=== PATIENT | male | born 1950 | race Caucasian/White ===

== ENCOUNTER 2018-05-23 23:49 | Inpatient (IN) | payer MEDICARE ==
[~2018-05-23] VITALS: Ht 175.3 cm; Wt 71.2 kg
[~2018-05-23 23:49] MED LIST: TYLENOL WITH C1 EAC2 ORAL
--- NOTE | 2018-05-24 00:55 | Emergency Room Report ---
History of Present Illness General Chief Complaint: Generalized Weakness Source: Patient Present Illness HPI Patient is a 67-year-old male brought in by EMS after increased generalized weakness. Patient gradual onset of symptoms.Patient was noted to have increased generalized abdominal pain. The patient prior history of chronic leukemia. He states he had recently been seen. He reports having a normal white blood count greater than 30,000. He denies any fever. He reports having increased generalized pain. Allergies: Coded Allergies: No Known Allergies (Unverified , 05/23/18) Patient History Past Medical History: see triage record Reviewed Nursing Documentation: PMH: Agreed; PSxH: Agreed Nursing Documentation-PMH Hx Cancer: Yes - Leukemia Review of Systems All Other Systems: negative except mentioned in HPI Physical Exam Vital Signs Date Time Temp Pulse Resp B/P (MAP) Pulse Ox O2 Delivery O2 Flow Rate FiO2 05/23/18 23:44 98.7 89 18 133/77 98 Room Air 98.8 Sp02 EP Interpretation: reviewed, normal General Appearance: alert, GCS 15, cachetic, Chronically Ill Head: atraumatic ENT: normal ENT inspection, normal voice, other - diffu Neck: normal inspection, full range of motion, supple, no bony tend Respiratory: normal inspection, lungs clear, normal breath sounds, no respiratory distress, no retraction, no wheezing Cardiovascular #1: regular rate, rhythm, no edema Gastrointestinal: normal inspection, normal bowel sounds, non tender, soft, no guarding, no hernia Genitourinary: no CVA tenderness Musculoskeletal: normal inspection, back normal, normal range of motion Neurologic: normal inspection, alert, oriented x3, responsive, fermentologist III-XII nml as tested, speech normal Psychiatric: normal inspection, judgement/insight normal, mood/affect normal Skin: normal inspection, normal color, no rash Medical Decision Making Diagnostic Impression: Primary Impression: Generalized weakness Additional Impressions: Leukemia Hyperkalemia Hepatitis ER Course Patient presented for generalized weakness. Differential diagnosis included was not limited to anemia, urinary tract infection, electrolyte abnormality, hypothyroidism, myocardial infarction, myasthenia gravis, dehydration, among others. Because of complexity of patient's case laboratory testing and imaging studies were ordered. The patient started on IV fluids. The patient was noted to have a extremely elevated white blood count. Patient was noted to be hyperkalemic. EKG interpreted by me showed normal sinus rhythm with a rate of 82 with peaking T waves. The QRS was not widened.The patient is advised to follow up with primary care doctor in 1-2 days. Patient is advised to return if any worsening condition or if any changes in status that are concerning. This report is dictated with [employer] senior qc technician software which may occasionally lead to discrepancies related to use of this software. Labs Test 05/24/18 00:30 White Blood Count 151.6 K/UL (4.8-10.8) Red Blood Count 5.34 M/UL (4.70-6.10) Hemoglobin 14.3 G/DL (14.2-18.0) Hematocrit 46.1 % (42.0-52.0) Mean Corpuscular Volume 86 FL (80-99) Mean Corpuscular Hemoglobin 26.7 PG (27.0-31.0) Mean Corpuscular Hemoglobin Concent 30.9 G/DL (32.0-36.0) Red Cell Distribution Width 15.8 % (11.6-14.8) Platelet Count 197 K/UL (150-450) Mean Platelet Volume 9.4 FL (6.5-10.1) Neutrophils (%) (Auto) % (45.0-75.0) Lymphocytes (%) (Auto) % (20.0-45.0) Monocytes (%) (Auto) % (1.0-10.0) Eosinophils (%) (Auto) % (0.0-3.0) Basophils (%) (Auto) % (0.0-2.0) Prothrombin Time 15.1 SEC (9.30-11.50) Prothromb Time International Ratio 1.5 (0.9-1.1) Activated Partial Thromboplast Time 30 SEC (23-33) Sodium Level 128 MMOL/L (136-145) Potassium Level 6.6 MMOL/L (3.5-5.1) Chloride Level 94 MMOL/L (98-107) Carbon Dioxide Level 24 MMOL/L (21-32) Anion Gap 10 mmol/L (5-15) Blood Urea Nitrogen 68 mg/dL (7-18) Creatinine 2.0 MG/DL (0.55-1.30) Estimat Glomerular Filtration Rate 33.3 mL/min (>60) Glucose Level 108 MG/DL (74-106) Calcium Level 9.2 MG/DL (8.5-10.1) Total Bilirubin 13.8 MG/DL (0.2-1.0) Direct Bilirubin 9.1 MG/DL (0.0-0.3) Aspartate Amino Transf (AST/SGOT) 990 U/L (15-37) Alanine Aminotransferase (ALT/SGPT) 933 U/L (12-78) Alkaline Phosphatase 968 U/L (46-116) Total Protein 6.4 G/DL (6.4-8.2) Albumin 3.6 G/DL (3.4-5.0) Globulin 2.8 g/dL Albumin/Globulin Ratio 1.3 (1.0-2.7) Lipase 370 U/L (73-393) Last Vital Signs Date Time Temp Pulse Resp B/P (MAP) Pulse Ox O2 Delivery O2 Flow Rate FiO2 05/23/18 23:44 98.7 89 18 133/77 98 Room Air 98.8 Status: improved Disposition: HOME, SELF-CARE Condition: Stable Isak Lincoln MD May 24, 2018 00:55
[2018-05-24] MEDS ORDERED: Morphine Sulfate 4mg/ml Inj IVP ONE (01:00)
[2018-05-24 01:04] LABS: HEMATOCRIT 46.1 % (42.0-52.0); HEMOGLOBIN 14.3 G/DL (14.2-18.0); MEAN CORPUSCULAR VOLUME 86 FL (80-99); PLATELET COUNT 197 K/UL (150-450); RED BLOOD COUNT 5.34 M/UL (4.70-6.10); RED CELL DISTRIBUTION WIDTH 15.8 % (11.6-14.8)
[2018-05-24 01:09] LABS: ALANINE AMINOTRANSFERASE 933 U/L (12-78); ALBUMIN 3.6 G/DL (3.4-5.0); ALBUMIN/GLOBULIN RATIO 1.3 (1.0-2.7); ALKALINE PHOSPHATASE 968 U/L (46-116); ANION GAP 10 mmol/L (5-15); ASPARTATE AMINO TRANSFERASE 990 U/L (15-37); BILIRUBIN,TOTAL 13.8 MG/DL (0.2-1.0); BLOOD UREA NITROGEN 68 mg/dL (7-18); CALCIUM 9.2 MG/DL (8.5-10.1); CARBON DIOXIDE 24 MMOL/L (21-32); CHLORIDE 94 MMOL/L (98-107); SODIUM 128 MMOL/L (136-145); WHITE BLOOD COUNT 151.6 K/UL (4.8-10.8)
[2018-05-24 01:13] LABS: POTASSIUM 6.6 MMOL/L (3.5-5.1)
[2018-05-24 01:14] LABS: BILIRUBIN,DIRECT 9.1 MG/DL (0.0-0.3)
[2018-05-24 01:22] LABS: INR 1.5 (0.9-1.1)
[2018-05-24] MEDS ORDERED: Sodium Bicarbonate 50ml Carp IV ONE (01:45)
[2018-05-24] MEDS ORDERED: Calcium Gluconate 1gm/10ml vial IVP ONE (01:45)
[2018-05-24] MEDS ORDERED: Insulin Human Regular 100units/ml 3ml IV ONE (01:45)
[2018-05-24 03:00] VITALS: BP 138/89
[2018-05-24 03:15] LABS: BILIRUBIN, URINE 1+ (NEGATIVE); GLUCOSE, URINE (UA) NEGATIVE (NEGATIVE); KETONES,URINE NEGATIVE (NEGATIVE); LEUKOCYTE ESTERASE ,URINE NEGATIVE (NEGATIVE); NITRITE,URINE NEGATIVE (NEGATIVE); PH,URINE 5 (4.5-8.0); PROTEIN,URINE 2+ (NEGATIVE); UROBILINOGEN,URINE 4 MG/DL (0.0-1.0)
[2018-05-24 03:47] LABS: APPEARANCE,URINE SLIGHTLY CLOUDY; COLOR,URINE YELLOW
[2018-05-24 04:08] VITALS: BP 111/72
[2018-05-24] MEDS ORDERED: ESTER-C 1,0001 EACH PO (04:45)
[2018-05-24 08:00] VITALS: BP 139/81
[2018-05-24] MEDS ORDERED: Morphine Sulfate 2mg/ml Inj IVP PRN (10:15)
[2018-05-24 11:15] LABS: HEMATOCRIT 44.1 % (42.0-52.0); HEMOGLOBIN 13.9 G/DL (14.2-18.0); MEAN CORPUSCULAR VOLUME 86 FL (80-99); PLATELET COUNT 179 K/UL (150-450); RED BLOOD COUNT 5.16 M/UL (4.70-6.10); RED CELL DISTRIBUTION WIDTH 16.1 % (11.6-14.8)
[2018-05-24 11:31] LABS: WHITE BLOOD COUNT 138.3 K/UL (4.8-10.8)
[2018-05-24 11:35] LABS: ALANINE AMINOTRANSFERASE 898 U/L (12-78); ALBUMIN 3.2 G/DL (3.4-5.0); ALBUMIN/GLOBULIN RATIO 1.2 (1.0-2.7); ALKALINE PHOSPHATASE 899 U/L (46-116); ANION GAP 13 mmol/L (5-15); ASPARTATE AMINO TRANSFERASE 1166 U/L (15-37); BILIRUBIN,TOTAL 12.7 MG/DL (0.2-1.0); BLOOD UREA NITROGEN 66 mg/dL (7-18); CALCIUM 8.6 MG/DL (8.5-10.1); CARBON DIOXIDE 22 MMOL/L (21-32); CHLORIDE 95 MMOL/L (98-107); CREATININE 1.8 MG/DL (0.55-1.30); POTASSIUM 5.9 MMOL/L (3.5-5.1); SODIUM 130 MMOL/L (136-145)
[2018-05-24 11:36] LABS: BILIRUBIN,DIRECT 8.5 MG/DL (0.0-0.3)
[2018-05-24 12:00] VITALS: BP 138/84
--- NOTE | 2018-05-24 12:14 | Cardiology Report ---
APPROVED REPORT EKG Measurement Heart [id number] HI [id number] Sinus tachycardia with fusion complexes Possible Anterior infarct, age undetermined Abnormal ECG
--- NOTE | 2018-05-24 12:42 | Consultation ---
History of Present Illness General Date patient seen: May 24, 2018 Chief Complaint: Generalized Weakness Present Illness HPI 67-year-old male brought in by EMS after increased generalized weakness.the pt is very ill appearing hard of hearing. the pt is somewhat confused and was a poor historian. His AST is severely high. appears to abuse alcohol. the pt has waxing and waning of consciousness Allergies: Coded Allergies: No Known Allergies (Unverified , 05/23/18) Medication History Scheduled Ascorbate Calcium/Bioflav (Lashanda-C 1,000 Mg Tablet), 1 EACH PO DAILY, (Reported) Scheduled PRN Acetaminophen With Codeine (T#3) (Tylenol With Codeine #3 Tablet), Unknown Dose ORAL Q4H PRN for For Pain, (Reported) Patient History Limited by: medical condition History Provided By: Patient, Medical Record, PMD Healthcare decision maker Resuscitation status Full Code Advanced Directive on File No Past Medical/Surgical History Past Medical/Surgical History: (1) Hyperkalemia (2) Hepatitis (3) Generalized weakness (4) Leukemia Review of Systems Psychiatric: Reports: prior hx, anxiety, depressed feelings, emotional problems Physical Exam General Appearance: no apparent distress, alert, confused Last 24 Hour Vital Signs Date Time Temp Pulse Resp B/P (MAP) Pulse Ox O2 Delivery O2 Flow Rate FiO2 05/24/18 09:05 Room Air 05/24/18 08:00 97.7 102 20 139/81 (100) 94 97.7 05/24/18 08:00 100 05/24/18 06:00 Room Air 05/24/18 04:08 97.0 93 20 111/72 (85) 93 97.0 05/24/18 04:01 98.7 18 133/77 98 Room Air 98.8 05/24/18 04:00 97 05/24/18 03:00 98.8 88 18 138/89 98 Room Air 98.8 05/23/18 23:44 98.7 89 18 133/77 98 Room Air 98.8 Intake and Output 05/23/18 05/24/18 19:00 07:00 Intake Total 300 ml Balance 300 ml Intake Oral 300 ml Laboratory Tests Test 05/24/18 00:30 05/24/18 02:30 05/24/18 10:50 White Blood Count 151.6 K/UL (4.8-10.8) *H 138.3 K/UL (4.8-10.8) *H Red Blood Count 5.34 M/UL (4.70-6.10) 5.16 M/UL (4.70-6.10) Hemoglobin 14.3 G/DL (14.2-18.0) 13.9 G/DL (14.2-18.0) L Hematocrit 46.1 % (42.0-52.0) 44.1 % (42.0-52.0) Mean Corpuscular Volume 86 FL (80-99) 86 FL (80-99) Mean Corpuscular Hemoglobin 26.7 PG (27.0-31.0) L 26.9 PG (27.0-31.0) L Mean Corpuscular Hemoglobin Concent 30.9 G/DL (32.0-36.0) L 31.4 G/DL (32.0-36.0) L Red Cell Distribution Width 15.8 % (11.6-14.8) H 16.1 % (11.6-14.8) H Platelet Count 197 K/UL (150-450) 179 K/UL (150-450) Mean Platelet Volume 9.4 FL (6.5-10.1) 9.3 FL (6.5-10.1) Neutrophils (%) (Auto) % (45.0-75.0) % (45.0-75.0) Lymphocytes (%) (Auto) % (20.0-45.0) % (20.0-45.0) Monocytes (%) (Auto) % (1.0-10.0) % (1.0-10.0) Eosinophils (%) (Auto) % (0.0-3.0) % (0.0-3.0) Basophils (%) (Auto) % (0.0-2.0) % (0.0-2.0) Differential Total Cells Counted 100 100 Neutrophils % (Manual) 12 % (45-75) L 11 % (45-75) L Lymphocytes % (Manual) 62 % (20-45) H 62 % (20-45) H Monocytes % (Manual) 0 % (1-10) L 4 % (1-10) Eosinophils % (Manual) 0 % (0-3) 0 % (0-3) Basophils % (Manual) 0 % (0-2) 0 % (0-2) Blast Cells % 26 % (0-0) *H 23 % (0-0) *H Band Neutrophils 0 % (0-8) 0 % (0-8) Other Cell Type Platelet Estimate Adequate Adequate Platelet Morphology Normal Normal Red Blood Cell Morphology Poikilocytosis 2+ Anisocytosis 2+ 1+ Prothrombin Time 15.1 SEC (9.30-11.50) H Prothromb Time International Ratio 1.5 (0.9-1.1) H Activated Partial Thromboplast Time 30 SEC (23-33) Sodium Level 128 MMOL/L (136-145) L 130 MMOL/L (136-145) L Potassium Level 6.6 MMOL/L (3.5-5.1) *H 5.9 MMOL/L (3.5-5.1) H Chloride Level 94 MMOL/L (98-107) L 95 MMOL/L (98-107) L Carbon Dioxide Level 24 MMOL/L (21-32) 22 MMOL/L (21-32) Anion Gap 10 mmol/L (5-15) 13 mmol/L (5-15) Blood Urea Nitrogen 68 mg/dL (7-18) H 66 mg/dL (7-18) H Creatinine 2.0 MG/DL (0.55-1.30) H 1.8 MG/DL (0.55-1.30) H Estimat Glomerular Filtration Rate 33.3 mL/min (>60) 37.6 mL/min (>60) Glucose Level 108 MG/DL (74-106) H 110 MG/DL (74-106) H Calcium Level 9.2 MG/DL (8.5-10.1) 8.6 MG/DL (8.5-10.1) Total Bilirubin 13.8 MG/DL (0.2-1.0) H 12.7 MG/DL (0.2-1.0) H Direct Bilirubin 9.1 MG/DL (0.0-0.3) H 8.5 MG/DL (0.0-0.3) H Aspartate Amino Transf (AST/SGOT) 990 U/L (15-37) H 1166 U/L (15-37) H Alanine Aminotransferase (ALT/SGPT) 933 U/L (12-78) H 898 U/L (12-78) H Alkaline Phosphatase 968 U/L (46-116) H 899 U/L (46-116) H Total Protein 6.4 G/DL (6.4-8.2) 5.8 G/DL (6.4-8.2) L Albumin 3.6 G/DL (3.4-5.0) 3.2 G/DL (3.4-5.0) L Globulin 2.8 g/dL 2.6 g/dL Albumin/Globulin Ratio 1.3 (1.0-2.7) 1.2 (1.0-2.7) Lipase 370 U/L (73-393) Urine Color Yellow Urine Appearance Slightly cloudy Urine pH 5 (4.5-8.0) Urine Specific [place] 1.020 (1.005-1.035) Urine Protein 2+ (NEGATIVE) H Urine Glucose (UA) Negative (NEGATIVE) Urine Ketones Negative (NEGATIVE) Urine Occult Blood 4+ (NEGATIVE) H Urine Nitrite Negative (NEGATIVE) Urine Bilirubin 1+ (NEGATIVE) H Urine Ictotest Positive Urine Urobilinogen 4 MG/DL (0.0-1.0) H Urine Leukocyte Esterase Negative (NEGATIVE) Urine RBC 5-10 /HPF (0 - 0) H Urine WBC 2-4 /HPF (0 - 0) Urine Squamous Epithelial Cells None /LPF (NONE/OCC) Urine Bacteria Few /HPF (NONE) Urine Hyaline Casts 0-2 /LPF (NONE) H Urine Fine Granular Casts 0-2 /LPF (NONE) H Smudge Cells 2+ Acanthocytes 1+ Height (Feet): 5 Height (Inches): 9.00 Weight (Pounds): 157 Medications Current Medications Medications (Trade) Dose Ordered Sig/Acosta Route PRN Reason Start Time Stop Time Status Last Admin Dose Admin Morphine Sulfate (Morphine Sulfate) 2 mg Q4H PRN IVP For Pain 05/24/18 10:15 05/31/18 10:14 Ondansetron HCl (Zofran) 4 mg Q6H PRN IVP Nausea & Vomiting 05/24/18 10:15 06/23/18 10:14 05/24/18 10:56 Risperidone (RisperDAL) 1 mg QHS ORAL 05/24/18 21:00 06/23/18 20:59 UNV Sodium Chloride 1,000 ml @ 100 mls/hr Q10H IV 05/24/18 10:30 06/23/18 10:29 05/24/18 10:57 Assessment/Plan Assessment/Plan encephalopathy alcohol dep alcohol wd -thiamine -folate -mv -risperdal -vs/q/2hr Patricia Escobar MD May 24, 2018 12:42
[2018-05-24] MEDS ORDERED: LORazepam 1mg tab ORAL PRN (13:00)
[2018-05-24] MEDS: Thiamine 100mg tab ORAL SCH (13:37)
[2018-05-24 16:00] VITALS: BP 143/76
[2018-05-24] MEDS: Morphine Sulfate 2mg/ml Inj IVP PRN ×2 (16:44→20:48)
[2018-05-24 20:00] VITALS: BP 149/82
--- NOTE | 2018-05-24 20:14 | Diagnostic Imaging Report ---
EXAM: US Abdomen Complete CLINICAL HISTORY: PAIN TECHNIQUE: Real-time ultrasound of the abdomen (complete) with image documentation. COMPARISON: No relevant prior studies available. FINDINGS: Liver: Liver is enlarged. Coarsened hepatic echotexture with mild nodular contour. No focal hepatic lesions. Hepatofugal flow is noted. Gallbladder: Mild nonspecific gallbladder wall thickening. Sonographic Gonzales sign is negative. No gallstones. Common bile duct: Unremarkable as visualized. No stones. No dilation. Pancreas: Unremarkable as visualized. Kidneys: Indeterminate lesions in the superior pole of the left kidney are isoechoic to the renal parenchyma. The larger lesion measures 2.5 cm. Small simple appearing right renal cyst. No hydronephrosis or nephrolithiasis. Spleen: The spleen is enlarged measuring 19.3 cm in length. Aorta: Unremarkable. No aneurysm. Inferior vena cava: Unremarkable. Free fluid: Small amount of abdominal ascites. IMPRESSION: Morphologic features of cirrhosis with reversal of flow in the portal vein. Small amount of abdominal ascites. Indeterminate lesions in the superior pole of the left kidney are not definitely cystic. Nonemergent multiphase renal protocol CT or MRI may be considered for further characterization, if prior imaging is unavailable for comparison.
--- NOTE | 2018-05-24 22:05 | History and Physical ---
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 Admitted for generalized weakness, nausea and abdominal distenstion Found to have wbc 169K No fevers or chills Allergies: Coded Allergies: No Known Allergies (Unverified , 05/23/18) Medication History Scheduled Ascorbate Calcium/Bioflav (Lashanda-C 1,000 Mg Tablet), 1 EACH PO DAILY, (Reported) Scheduled PRN Acetaminophen With Codeine (T#3) (Tylenol With Codeine #3 Tablet), Unknown Dose ORAL Q4H PRN for For Pain, (Reported) Patient History Healthcare decision maker Resuscitation status Full Code Advanced Directive on File No Past Medical/Surgical History Past Medical/Surgical History: (1) Hyperkalemia (2) Hepatitis (3) Leukemia Review of Systems Constitutional: Reports: malaise, weakness Eye: Reports: no symptoms ENT: Reports: no symptoms Respiratory: Reports: no symptoms Cardiovascular: Reports: no symptoms Gastrointestinal: Reports: constipation, nausea Genitourinary: Reports: no symptoms Musculoskeletal: Reports: no symptoms Skin: Reports: no symptoms Psychiatric: Reports: no symptoms Neurological: Reports: no symptoms Endocrine: Reports: unexplained weight loss Hematologic/Lymphatic: Reports: swollen glands Physical Exam General Appearance: no apparent distress, cachetic, thin Lines, tubes and drains: peripheral HEENT: normocephalic Neck: non-tender, supple Respiratory/Chest: chest wall non-tender, lungs clear Breasts: no masses Cardiovascular/Chest: normal peripheral pulses, normal rate, regular rhythm Abdomen: normal bowel sounds, distended, hepatomegaly, splenomegaly Genitourinary/Rectal: normal genital exam Extremities: non-tender, no edema Skin Exam: palled Neurologic: vulnerability researcher II-XII grossly normal Lymphatic: anterior cervical Musculoskeletal: atrophy Last 24 Hour Vital Signs Date Time Temp Pulse Resp B/P (MAP) Pulse Ox O2 Delivery O2 Flow Rate FiO2 05/24/18 16:00 95 05/24/18 16:00 96.8 94 20 143/76 (98) 96 96.8 05/24/18 12:00 97.5 95 20 138/84 (102) 93 97.5 05/24/18 12:00 93 05/24/18 09:05 Room Air 05/24/18 08:00 97.7 102 20 139/81 (100) 94 97.7 05/24/18 08:00 100 05/24/18 06:00 Room Air 05/24/18 04:08 97.0 93 20 111/72 (85) 93 97.0 05/24/18 04:01 98.7 18 133/77 98 Room Air 98.8 05/24/18 04:00 97 05/24/18 03:00 98.8 88 18 138/89 98 Room Air 98.8 05/23/18 23:44 98.7 89 18 133/77 98 Room Air 98.8 Intake and Output 05/23/18 05/24/18 19:00 07:00 Intake Total 300 ml Balance 300 ml Intake Oral 300 ml Laboratory Tests Test 05/24/18 00:30 05/24/18 02:30 05/24/18 10:50 White Blood Count 151.6 K/UL (4.8-10.8) *H 138.3 K/UL (4.8-10.8) *H Red Blood Count 5.34 M/UL (4.70-6.10) 5.16 M/UL (4.70-6.10) Hemoglobin 14.3 G/DL (14.2-18.0) 13.9 G/DL (14.2-18.0) L Hematocrit 46.1 % (42.0-52.0) 44.1 % (42.0-52.0) Mean Corpuscular Volume 86 FL (80-99) 86 FL (80-99) Mean Corpuscular Hemoglobin 26.7 PG (27.0-31.0) L 26.9 PG (27.0-31.0) L Mean Corpuscular Hemoglobin Concent 30.9 G/DL (32.0-36.0) L 31.4 G/DL (32.0-36.0) L Red Cell Distribution Width 15.8 % (11.6-14.8) H 16.1 % (11.6-14.8) H Platelet Count 197 K/UL (150-450) 179 K/UL (150-450) Mean Platelet Volume 9.4 FL (6.5-10.1) 9.3 FL (6.5-10.1) Neutrophils (%) (Auto) % (45.0-75.0) % (45.0-75.0) Lymphocytes (%) (Auto) % (20.0-45.0) % (20.0-45.0) Monocytes (%) (Auto) % (1.0-10.0) % (1.0-10.0) Eosinophils (%) (Auto) % (0.0-3.0) % (0.0-3.0) Basophils (%) (Auto) % (0.0-2.0) % (0.0-2.0) Differential Total Cells Counted 100 100 Neutrophils % (Manual) 12 % (45-75) L 11 % (45-75) L Lymphocytes % (Manual) 88 % (20-45) H 62 % (20-45) H Monocytes % (Manual) 0 % (1-10) L 4 % (1-10) Eosinophils % (Manual) 0 % (0-3) 0 % (0-3) Basophils % (Manual) 0 % (0-2) 0 % (0-2) Blast Cells % 0 % (0-0) 23 % (0-0) *H Band Neutrophils 0 % (0-8) 0 % (0-8) Other Cell Type Platelet Estimate Adequate Adequate Platelet Morphology Normal Normal Red Blood Cell Morphology Poikilocytosis 2+ Anisocytosis 2+ 1+ Prothrombin Time 15.1 SEC (9.30-11.50) H Prothromb Time International Ratio 1.5 (0.9-1.1) H Activated Partial Thromboplast Time 30 SEC (23-33) Sodium Level 128 MMOL/L (136-145) L 130 MMOL/L (136-145) L Potassium Level 6.6 MMOL/L (3.5-5.1) *H 5.9 MMOL/L (3.5-5.1) H Chloride Level 94 MMOL/L (98-107) L 95 MMOL/L (98-107) L Carbon Dioxide Level 24 MMOL/L (21-32) 22 MMOL/L (21-32) Anion Gap 10 mmol/L (5-15) 13 mmol/L (5-15) Blood Urea Nitrogen 68 mg/dL (7-18) H 66 mg/dL (7-18) H Creatinine 2.0 MG/DL (0.55-1.30) H 1.8 MG/DL (0.55-1.30) H Estimat Glomerular Filtration Rate 33.3 mL/min (>60) 37.6 mL/min (>60) Glucose Level 108 MG/DL (74-106) H 110 MG/DL (74-106) H Calcium Level 9.2 MG/DL (8.5-10.1) 8.6 MG/DL (8.5-10.1) Total Bilirubin 13.8 MG/DL (0.2-1.0) H 12.7 MG/DL (0.2-1.0) H Direct Bilirubin 9.1 MG/DL (0.0-0.3) H 8.5 MG/DL (0.0-0.3) H Aspartate Amino Transf (AST/SGOT) 990 U/L (15-37) H 1166 U/L (15-37) H Alanine Aminotransferase (ALT/SGPT) 933 U/L (12-78) H 898 U/L (12-78) H Alkaline Phosphatase 968 U/L (46-116) H 899 U/L (46-116) H Total Protein 6.4 G/DL (6.4-8.2) 5.8 G/DL (6.4-8.2) L Albumin 3.6 G/DL (3.4-5.0) 3.2 G/DL (3.4-5.0) L Globulin 2.8 g/dL 2.6 g/dL Albumin/Globulin Ratio 1.3 (1.0-2.7) 1.2 (1.0-2.7) Lipase 370 U/L (73-393) Urine Color Yellow Urine Appearance Slightly cloudy Urine pH 5 (4.5-8.0) Urine Specific [place] 1.020 (1.005-1.035) Urine Protein 2+ (NEGATIVE) H Urine Glucose (UA) Negative (NEGATIVE) Urine Ketones Negative (NEGATIVE) Urine Occult Blood 4+ (NEGATIVE) H Urine Nitrite Negative (NEGATIVE) Urine Bilirubin 1+ (NEGATIVE) H Urine Ictotest Positive Urine Urobilinogen 4 MG/DL (0.0-1.0) H Urine Leukocyte Esterase Negative (NEGATIVE) Urine RBC 5-10 /HPF (0 - 0) H Urine WBC 2-4 /HPF (0 - 0) Urine Squamous Epithelial Cells None /LPF (NONE/OCC) Urine Bacteria Few /HPF (NONE) Urine Hyaline Casts 0-2 /LPF (NONE) H Urine Fine Granular Casts 0-2 /LPF (NONE) H Smudge Cells 2+ Acanthocytes 1+ Height (Feet): 5 Height (Inches): 9.00 Weight (Pounds): 157 Medications Current Medications Medications (Trade) Dose Ordered Sig/Acosta Route PRN Reason Start Time Stop Time Status Last Admin Dose Admin Folic Acid (Folate) 1 mg DAILY ORAL 05/24/18 13:00 06/23/18 12:59 05/24/18 13:37 Lorazepam (Ativan) 2 mg Q3H PRN ORAL For Anxiety 05/24/18 13:00 05/31/18 12:59 Morphine Sulfate (Morphine Sulfate) 2 mg Q4H PRN IVP For Pain 05/24/18 10:15 05/31/18 10:14 05/24/18 20:48 Ondansetron HCl (Zofran) 4 mg Q6H PRN IVP Nausea & Vomiting 05/24/18 10:15 06/23/18 10:14 05/24/18 16:44 Risperidone (RisperDAL) 1 mg QHS ORAL 05/24/18 21:00 06/23/18 20:59 05/24/18 20:48 Sodium Chloride 1,000 ml @ 100 mls/hr Q10H IV 05/24/18 10:30 06/23/18 10:29 05/24/18 10:57 Thiamine HCl (Vitamin B1) 100 mg DAILY ORAL 05/24/18 13:00 06/23/18 12:59 05/24/18 13:37 Assessment/Plan Status: not improved Status Narrative 67 yo man with h/o CLL, untreated admitted for increase WBC and fatigue/malaise/ generalized weakness Has elevated WBC on exam concerning for acute on chronic leukemia Assessment/Plan 1) Elevated WBC- h/o CLL -concerning for acute on chronic leukemia -will consult Hematology -Check AM labs -No signs for infection but will start broad spectrum antibiotics if signs/sxs of infection manifest 2) Abdominal distension/discomfort -likely due to organomegaly bowel regimen if fever or more severe pain occur will image and consider intraabdominal infection DVT Prophylaxis: SCD's Code Status: Full Hospital Classification declaration: Based on this initial evaluation and depending on the patient's clinical course I anticipate that this patient will require hospitalization for at least 2-3 days Disposition: Once the patient is stable to leave the hospital I anticipate the patient will likely be discharged to the following environment: Home I spent 70 minutes on this patients car and 36 minutes was dedicated to counseling and care coordination Time of note may not reflect time of encounter Jaguar Guajardo M.D. May 24, 2018 22:05
[2018-05-25] VITALS (7 sets, daily range): BP systolic 117–139; BP diastolic 62–76
[2018-05-25] MEDS: Thiamine 100mg tab ORAL SCH ×2 (09:00→09:34)
--- NOTE | 2018-05-25 15:47 | Consultation ---
Consult Note Consult Note Job ID [id number] Jose Hartman MD May 25, 2018 15:46
--- NOTE | 2018-05-25 22:37 | General Progress Note ---
Assessment/Plan Status: deteriorating Status Narrative 67 yo man with h/o CLL with leukocytosis concerning for acute on chronic leukemia Assessment/Plan 1) Elevated WBC- h/o CLL -concerning for acute on chronic leukemia -will consult Hematology -Check AM labs -No signs for infection but will start broad spectrum antibiotics if signs/sxs of infection manifest 2) Abdominal distension/discomfort -likely due to organomegaly bowel regimen if fever or more severe pain occur will image and consider intraabdominal infection 3) DECLAN, hyperuricemia, hyperkalemia -uric acid elevated -? tumor lysis -IVF's -Renal consult 4) Hepatitis -f/u labs -GI consult DVT Prophylaxis: SCD's Code status:Full Hospital Classification declaration:~Based on this initial evaluation, and depending on the patient's clinical course, I anticipate that this patient will require hospitalization for 2-3 days. Disposition:~Once the patient is stable to leave the hospital, I anticipate the patient will likely be discharged to the following environment:Home I spent 45 minutes on this patient's case, and 35~minutes was dedicated to counseling and/or care coordination. ~ Time of note may not reflect time of encounter. Subjective Date patient seen: May 25, 2018 Time patient seen: 09:10 Allergies: Coded Allergies: No Known Allergies (Unverified , 05/23/18) Subjective No acute events overnight Patient with continued nausea, improving No vomiting +weakness Objective Last 24 Hour Vital Signs Date Time Temp Pulse Resp B/P (MAP) Pulse Ox O2 Delivery O2 Flow Rate FiO2 05/25/18 21:00 Room Air 05/25/18 20:00 89 05/25/18 20:00 97.5 89 24 139/67 (91) 95 97.5 05/25/18 16:00 97.5 89 18 138/66 (90) 98 97.5 05/25/18 16:00 88 05/25/18 12:00 100 05/25/18 11:45 97.5 92 18 133/62 (85) 95 97.5 05/25/18 09:00 Room Air 05/25/18 08:00 94 05/25/18 08:00 97.8 94 20 117/72 (87) 95 97.8 05/25/18 04:00 96.1 94 19 128/62 (84) 94 96.1 05/25/18 04:00 95 05/25/18 00:00 95 05/25/18 00:00 97.9 92 18 134/76 (95) 93 97.9 Intake and Output 05/24/18 05/25/18 19:00 07:00 Intake Total 1240 ml 640 ml Output Total 400 ml 0 ml Balance 840 ml 640 ml Intake Oral 440 ml 240 ml IV Total 800 ml 400 ml Output Urine Total 400 ml 0 ml # Bowel Movements 2 Laboratory Tests 05/25/18 10:00: Reticulocyte Count 1.3, Uric Acid 12.9H, Vitamin B12 Level > 2000H, Immunoglobulin G [Pending], Immunoglobulin A [Pending], Immunoglobulin M [ Pending] Height (Feet): 5 Height (Inches): 9.00 Weight (Pounds): 157 General Appearance: no apparent distress, cachetic, thin EENT: PERRL/EOMI, normal ENT inspection, scleral icterus, pale conjunctivae Neck: non-tender, supple Cardiovascular: normal peripheral pulses, normal rate, regular rhythm, no gallop/murmur, no JVD Respiratory/Chest: chest wall non-tender, lungs clear Abdomen: normal bowel sounds, non tender, hepatomegaly, splenomegaly Pelvis: normal external exam Extremities: normal range of motion Edema: trace edema Neurologic: testing and regulating chief II-XII grossly normal, no motor/sensory deficits Skin: normal pigmentation, warm/dry Lymphatic: normal anterior cervical (L), normal anterior cervical (R), normal posterior cervical (L), normal posterior cervical (R); firm submandibular (L), firm submandibular (R) Jaguar Guajardo M.D. May 25, 2018 22:37
[2018-05-26] VITALS (7 sets, daily range): BP systolic 112–129; BP diastolic 59–70
--- NOTE | 2018-05-26 00:45 | Consultation ---
DATE OF CONSULTATION: 05/25/2018 NOTE: POOR AUDIO HEMATOLOGY/ONCOLOGY CONSULTATION CONSULTING PHYSICIAN: Jose Hartman M.D. REFERRING PHYSICIANS: Luca Smith M.D., Karley Almanza NP, and Jaguar Guajardo M.D. REASON FOR CONSULTATION: Evaluation of CLL. IDENTIFYING DATA: Dear Dr. Smith, Karley Almanza, and Dr. Jaguar Guajardo: The patient is a pleasant 67-year-old male, recently diagnosed with CLL with history. At this time, noted to have a white count of 169,000, noted to have elevated lymphocytes, potentially lymphocytes noted as well, at this time presents with abdominal pain, nausea with distention. Ultrasound of the abdomen has been completed. Liver enlarged, nonsignificant splenomegaly was noted and Hematology Service consulted for evaluation of elevated lymphocyte count. PAST MEDICAL HISTORY: As noted above, hyperlipidemia, hypertension, leukemia. PAST SURGICAL HISTORY: None noted. ALLERGIES: . FAMILY HISTORY: Noncontributory. SOCIAL HISTORY: No alcohol, tobacco, or drug use. REVIEW OF SYSTEMS: CONSTITUTIONAL: No fevers, chills, or night sweats. SKIN: No rashes, bumps, or itching. HEENT: No headache, hearing or visual changes. BREASTS: No lumps, pain, or discharge. PULMONARY: No cough, sputum, or shortness of breath. GASTROINTESTINAL: No nausea, vomiting, or diarrhea. GENITOURINARY: No dysuria, frequency, or urgency. MUSCULOSKELETAL: No joint swelling, muscle pain, or trauma. lymphadenopathy noted along the neck as well as the inguinal area. LABORATORY AND DIAGNOSTIC DATA: WBC of 138,000. Hemoglobin , hematocrit , platelets 179,000. No blasts noted. Coagulopathy, INR 1.5. of 12.7 and . ASSESSMENT AND RECOMMENDATION: 1. CLL. The patient with a recent diagnosis of CLL with lymphocytes predominant and neutrophils. At this time, imaging has been reviewed. Does not need any immediate treatment. Obtain Psychiatry evaluation, likely will need either by mouth or IV drug in the outpatient setting. Continue to closely monitor. 2. Anemia due to underlying chronic kidney disease. 3. Coagulopathy, likely due to liver involvement and hepatitis. Administer vitamin K as needed. 4. Immunodeficiency state. Obtain IgG, IgA and IgM levels. 5. Hepatitis, noted to have transaminitis. Obtain GI evaluation. 6. Hyperchloremia and consider to obtain CT scan. 7. Appreciate the consultation. Thank you very much for the consultation. Jose Hartman M.D. DR: SACHA JOB#: [id number] CC:
--- NOTE | 2018-05-26 08:41 | General Progress Note ---
Assessment/Plan Assessment/Plan 1) Elevated WBC- h/o CLL -concerning for acute on chronic leukemia -will consult Hematology -Check AM labs -No signs for infection but will start broad spectrum antibiotics if signs/sxs of infection manifest 2) Abdominal distension/discomfort -likely due to organomegaly bowel regimen if fever or more severe pain occur will image and consider intraabdominal infection 3) DECLAN, hyperuricemia, hyperkalemia -uric acid elevated -? tumor lysis -IVF's -Renal consult 4) Hepatitis -f/u labs -GI consult DVT Prophylaxis: SCD's Code status:Full Hospital Classification declaration:~Based on this initial evaluation, and depending on the patient's clinical course, I anticipate that this patient will require hospitalization for 2-3 days. Disposition:~Once the patient is stable to leave the hospital, I anticipate the patient will likely be discharged to the following environment:Home I spent 45 minutes on this patient's case, and 35~minutes was dedicated to counseling and/or care coordination. ~ Time of note may not reflect time of encounter. Subjective Allergies: Coded Allergies: No Known Allergies (Unverified , 05/23/18) Subjective No acute events overnight Patient with continued nausea, improving No vomiting +weakness Objective Last 24 Hour Vital Signs Date Time Temp Pulse Resp B/P (MAP) Pulse Ox O2 Delivery O2 Flow Rate FiO2 05/26/18 05:58 97.4 86 22 112/60 (77) 95 97.4 05/26/18 04:00 97.5 89 24 122/59 (80) 94 97.5 05/26/18 04:00 85 05/26/18 02:00 97.2 92 24 124/68 (86) 95 97.2 05/26/18 00:00 94 05/26/18 00:00 97.0 94 24 121/62 (81) 94 97.0 05/25/18 22:00 97.2 88 20 121/68 (85) 94 97.2 05/25/18 21:00 Room Air 05/25/18 20:00 89 05/25/18 20:00 97.5 89 24 139/67 (91) 95 97.5 05/25/18 16:00 97.5 89 18 138/66 (90) 98 97.5 05/25/18 16:00 88 05/25/18 12:00 100 05/25/18 11:45 97.5 92 18 133/62 (85) 95 97.5 05/25/18 09:00 Room Air Intake and Output 05/25/18 05/26/18 19:00 07:00 Intake Total 120 ml 1358 ml Output Total 200 ml 300 ml Balance -80 ml 1058 ml Intake Oral 120 ml 360 ml IV Total 998 ml Output Urine Total 200 ml 300 ml # Voids 1 1 # Bowel Movements 1 Laboratory Tests 05/25/18 10:00: Reticulocyte Count 1.3, Uric Acid 12.9H, Vitamin B12 Level > 2000H, Immunoglobulin G [Pending], Immunoglobulin A [Pending], Immunoglobulin M [ Pending] Height (Feet): 5 Height (Inches): 9.00 Weight (Pounds): 157 Jaguar Guajardo M.D. May 26, 2018 08:41
[2018-05-26 08:55] LABS: HEMATOCRIT 42.8 % (42.0-52.0); HEMOGLOBIN 13.3 G/DL (14.2-18.0); MEAN CORPUSCULAR VOLUME 86 FL (80-99); PLATELET COUNT 136 K/UL (150-450); RED BLOOD COUNT 4.97 M/UL (4.70-6.10); RED CELL DISTRIBUTION WIDTH 17.3 % (11.6-14.8)
[2018-05-26] MEDS: Thiamine 100mg tab ORAL SCH (08:57)
[2018-05-26] MEDS ORDERED: Lactulose 20gm/30ml UDC ORAL SCH ×3 (09:00→18:00)
[2018-05-26 09:01] LABS: WHITE BLOOD COUNT 165.7 K/UL (4.8-10.8)
[2018-05-26 09:24] LABS: ALANINE AMINOTRANSFERASE 1675 U/L (12-78); ALBUMIN/GLOBULIN RATIO 1.3 (1.0-2.7); ALKALINE PHOSPHATASE 967 U/L (46-116); ANION GAP 20 mmol/L (5-15); BILIRUBIN,TOTAL 15.5 MG/DL (0.2-1.0); BLOOD UREA NITROGEN 104 mg/dL (7-18); CALCIUM 8.4 MG/DL (8.5-10.1); CARBON DIOXIDE 14 MMOL/L (21-32); CHLORIDE 94 MMOL/L (98-107); CREATININE 3.8 MG/DL (0.55-1.30); POTASSIUM 7.5 MMOL/L (3.5-5.1); SODIUM 128 MMOL/L (136-145)
[2018-05-26 09:36] LABS: ASPARTATE AMINO TRANSFERASE 2880 U/L (15-37)
[2018-05-26 09:55] LABS: AMMONIA 110 umol/L (11-32)
--- NOTE | 2018-05-26 09:56 | Diagnostic Imaging Report ---
EXAM: CT Head Without Intravenous Contrast CLINICAL HISTORY: AMS TECHNIQUE: Axial computed tomography images of the head/brain without intravenous contrast. CTDI is 70.38 mGy and DLP is 1481 mGy-cm. One or more of the following dose reduction techniques were used: automated exposure control, adjustment of the mA and/or kV according to patient size, use of iterative reconstruction technique. COMPARISON: No relevant prior studies available. FINDINGS: No intracranial hemorrhage, abnormal intra- or extra-axial collections or parenchymal lesions are seen. There are involutional changes with prominence of the sulci, basal cisterns and ventricles. Scattered white matter hypoattenuations are present, likely from small vessel disease. Hypoattenuation in the right claudia is likely due to streak artifact. The lr-white differentiation is preserved. No evidence of mass effect, midline shift, or edema. The osseous structures are unremarkable. The visualized portions of the paranasal sinuses are clear. IMPRESSION: 1. No acute intracranial process. 2. Involutional changes with small vessel disease. 3. Hypoattenuation in the right claudia is likely due to streak artifact versus old infarct.
--- NOTE | 2018-05-26 10:36 | General Progress Note ---
Assessment/Plan Assessment/Plan GI CONSULT -Dictated Assessment - Acute hepatitis, possibly going into fulminant liver failure - Likely underlying chronic liver disease / cirrhosis, etiology to be determined (possibly EtOH) - concomitant acute renal failure a very poor prognostic sign - acute liver failure on top of a cirrhotic liver also carries very poor prognosis - cause of acute liver failure not clear. Presentation typical for tylenol toxicity but Tylenol level added to admit labs is undetectable - DDX = HSV, HAV, EBV, CMV or orther pathology Recommendations - Needs to be transferred to a liver transplant center today - I will order all appropriate serologies - check liver duplex and CT - Increase lactulose - follow very closely - renal consult - will likely need HD soon - very guarded - may need transfer to ICU if condition worsens Subjective Allergies: Coded Allergies: No Known Allergies (Unverified , 05/23/18) Objective Last 24 Hour Vital Signs Date Time Temp Pulse Resp B/P (MAP) Pulse Ox O2 Delivery O2 Flow Rate FiO2 05/26/18 09:00 Room Air 05/26/18 08:00 97.0 90 20 119/67 (84) 96 97.0 05/26/18 08:00 87 05/26/18 05:58 97.4 86 22 112/60 (77) 95 97.4 05/26/18 04:00 97.5 89 24 122/59 (80) 94 97.5 05/26/18 04:00 85 05/26/18 02:00 97.2 92 24 124/68 (86) 95 97.2 05/26/18 00:00 94 05/26/18 00:00 97.0 94 24 121/62 (81) 94 97.0 05/25/18 22:00 97.2 88 20 121/68 (85) 94 97.2 05/25/18 21:00 Room Air 05/25/18 20:00 89 05/25/18 20:00 97.5 89 24 139/67 (91) 95 97.5 05/25/18 16:00 97.5 89 18 138/66 (90) 98 97.5 05/25/18 16:00 88 05/25/18 12:00 100 05/25/18 11:45 97.5 92 18 133/62 (85) 95 97.5 Intake and Output 05/25/18 05/26/18 19:00 07:00 Intake Total 120 ml 1358 ml Output Total 200 ml 300 ml Balance -80 ml 1058 ml Intake Oral 120 ml 360 ml IV Total 998 ml Output Urine Total 200 ml 300 ml # Voids 1 1 # Bowel Movements 1 Laboratory Tests 05/26/18 08:43: White Blood Count 165.7*H, Red Blood Count 4.97, Hemoglobin 13.3L, Hematocrit 42.8, Mean Corpuscular Volume 86, Mean Corpuscular Hemoglobin 26.7L, Mean Corpuscular Hemoglobin Concent 31.0L, Red Cell Distribution Width 17.3H, Platelet Count 136L, Mean Platelet Volume 8.4, Neutrophils (%) (Auto) , Lymphocytes (%) (Auto) , Monocytes (%) (Auto) , Eosinophils (%) (Auto) , Basophils (%) (Auto) , Differential Total Cells Counted 100, Neutrophils % ( Manual) 6L, Lymphocytes % (Manual) 78H, Monocytes % (Manual) 0L, Eosinophils % ( Manual) 0, Basophils % (Manual) 0, Blast Cells % 16*H, Band Neutrophils 0, Smudge Cells 2+, Platelet Estimate DecreasedL, Platelet Morphology Normal, Polychromasia 1+, Anisocytosis 1+, Sodium Level 128L, Potassium Level 7.5*H, Chloride Level 94L, Carbon Dioxide Level 14L, Anion Gap 20H, Blood Urea Nitrogen 104H, Creatinine 3.8H, Estimat Glomerular Filtration Rate 15.9, Glucose Level 104, Calcium Level 8.4L, Total Bilirubin 15.5H, Direct Bilirubin 11.0H, Aspartate Amino Transf (AST/SGOT) 2880H, Alanine Aminotransferase (ALT/ SGPT) 1675H, Alkaline Phosphatase 967H, Ammonia 110H, Total Protein 5.3L, Albumin 3.0L, Globulin 2.3, Albumin/Globulin Ratio 1.3, Acetaminophen Level [ Pending] Height (Feet): 5 Height (Inches): 9.00 Weight (Pounds): 157 Des Jha MD May 26, 2018 10:36
[2018-05-26] MEDS ORDERED: Sodium Polystyrene Sulfonate 15gm Powder ORAL SCH (12:00)
[2018-05-26 12:39] LABS: % IRON SATURATION 13 % (15-50); IRON 26 ug/dL (50-175); TOTAL IRON BINDING CAPACITY 200 ug/dL (250-450)
[2018-05-26 12:52] LABS: CREATINE KINASE 253 U/L (26-308); FERRITIN 1714 NG/ML (8-388)
[2018-05-26 13:07] LABS: INR 1.6 (0.9-1.1)
--- NOTE | 2018-05-26 13:50 | Consultation ---
Consult Note Consult Note asked to eval for renal failure Patient is a 67-year-old male brought in by EMS after increased generalized weakness. Patient gradual onset of symptoms.Patient was noted to have increased generalized abdominal pain. The patient prior history of chronic leukemia. He states he had recently been seen. He reports having a normal white blood count greater than 30,000. He denies any fever. He reports having increased generalized pain. Allergies: Coded Allergies: No Known Allergies (Unverified , 05/23/18) Assessment/Plan Acute renal failure- ? Hepato Renal HyperKalemia Acute hepatitis, possibly going into fulminant liver failure- Jaundice. Likely underlying chronic liver disease / cirrhosis, etiology to be determined ( possibly ETOH) CLL / Low immunity syndrom HyperUrecemia Kayexelate- Lactulose IV Hydrate NPO Monitor lytes and Renal parameters Poor prognosis U Na Isma Yoon Per orders Montez Meadows MD May 26, 2018 13:50
[2018-05-26] MEDS ORDERED: D5NS 1,000 ML IV SCH ×2 (13:51→14:00)
--- NOTE | 2018-05-26 16:18 | General Progress Note ---
Assessment/Plan Status: unchanged Assessment/Plan 1. CLL. The patient with a recent diagnosis of CLL with lymphocytes predominant and neutrophils. At this time, imaging has been reviewed. --> Does not need any immediate treatment. --> Obtain Psychiatry evaluation, --> likely will need either by mouth or IV drug in the outpatient setting. --> Continue to closely monitor. 2. Anemia due to underlying chronic kidney disease. --> Continue to closely monitor for improvement. --> Anemia w/u has been reviewed. Will trend CBC daily. --> Hgb goal >7 3. Coagulopathy, likely due to liver involvement and hepatitis. --> Administer vitamin K as needed. 4. Immunodeficiency state. --> IgG 470, IgA 75 and IgM 37 5. Hepatitis, noted to have transaminitis. Obtain GI evaluation. 6. Hyperchloremia. Consider to obtain CT scan. Subjective Date patient seen: May 26, 2018 ROS Limited/Unobtainable: Yes Allergies: Coded Allergies: No Known Allergies (Unverified , 05/23/18) All Systems: reviewed and negative except above Subjective CT head shows no acute intracranial process. Pt awaiting transfer to [facility]. Objective Last 24 Hour Vital Signs Date Time Temp Pulse Resp B/P (MAP) Pulse Ox O2 Delivery O2 Flow Rate FiO2 05/26/18 13:00 Room Air 05/26/18 09:00 Room Air 05/26/18 08:00 97.0 90 20 119/67 (84) 96 97.0 05/26/18 08:00 87 05/26/18 05:58 97.4 86 22 112/60 (77) 95 97.4 05/26/18 04:00 97.5 89 24 122/59 (80) 94 97.5 05/26/18 04:00 85 05/26/18 02:00 97.2 92 24 124/68 (86) 95 97.2 05/26/18 00:00 94 05/26/18 00:00 97.0 94 24 121/62 (81) 94 97.0 05/25/18 22:00 97.2 88 20 121/68 (85) 94 97.2 05/25/18 21:00 Room Air 05/25/18 20:00 89 05/25/18 20:00 97.5 89 24 139/67 (91) 95 97.5 Intake and Output 05/25/18 05/26/18 19:00 07:00 Intake Total 120 ml 1358 ml Output Total 200 ml 300 ml Balance -80 ml 1058 ml Intake Oral 120 ml 360 ml IV Total 998 ml Output Urine Total 200 ml 300 ml # Voids 1 1 # Bowel Movements 1 Laboratory Tests 05/26/18 08:43: White Blood Count 165.7*H, Red Blood Count 4.97, Hemoglobin 13.3L, Hematocrit 42.8, Mean Corpuscular Volume 86, Mean Corpuscular Hemoglobin 26.7L, Mean Corpuscular Hemoglobin Concent 31.0L, Red Cell Distribution Width 17.3H, Platelet Count 136L, Mean Platelet Volume 8.4, Neutrophils (%) (Auto) , Lymphocytes (%) (Auto) , Monocytes (%) (Auto) , Eosinophils (%) (Auto) , Basophils (%) (Auto) , Differential Total Cells Counted 100, Neutrophils % ( Manual) 6L, Lymphocytes % (Manual) 78H, Monocytes % (Manual) 0L, Eosinophils % ( Manual) 0, Basophils % (Manual) 0, Blast Cells % 16*H, Band Neutrophils 0, Smudge Cells 2+, Platelet Estimate DecreasedL, Platelet Morphology Normal, Polychromasia 1+, Anisocytosis 1+, Erythrocyte Sedimentation Rate 2, Sodium Level 128L, Potassium Level 7.5*H, Chloride Level 94L, Carbon Dioxide Level 14L , Anion Gap 20H, Blood Urea Nitrogen 104H, Creatinine 3.8H, Estimat Glomerular Filtration Rate 15.9, Glucose Level 104, Calcium Level 8.4L, Iron Level 26L, Total Iron Binding Capacity 200L, Percent Iron Saturation 13L, Unsaturated Iron Binding 174, Ferritin 1714H, Total Bilirubin 15.5H, Direct Bilirubin 11.0H, Aspartate Amino Transf (AST/SGOT) 2880H, Alanine Aminotransferase (ALT/SGPT) 1675H, Alkaline Phosphatase 967H, Ammonia 110H, Total Creatine Kinase 253, C- Reactive Protein, Quantitative 13.9H, Total Protein 5.3L, Albumin 3.0L, Globulin 2.3, Albumin/Globulin Ratio 1.3, Acetaminophen Level < 2L 05/26/18 12:40: Prothrombin Time 16.7H, Prothromb Time International Ratio 1.6H, Alpha-1- Antitrypsin [Pending], Alpha Fetoprotein [Pending], Anti-Nuclear Antibody Screen [Pending], F-Actin IgG Antibody [Pending], Cytomegalovirus DNA Qual (PCR ) [Pending], Maninder-Hazel Virus Capsid Ag IgM Ab [Pending], Maninder-Hazel DNA Quant copies/mL [Pending], Maninder-Hazel Quant PCR Plasma log10 [Pending], Hepatitis A IgM Antibody [Pending], Hepatitis B Surface Antigen [Pending], Hepatitis B Surface Antibody [Pending], Hepatitis B Core IgM Antibody [Pending] , Hepatitis C Antibody [Pending], Herpes Simplex Virus I IgM Ab (IFA) [Pending] , Herpes Simplex Virus II IgM Ab (IFA [Pending], Monoscreen [Pending] 05/26/18 14:00: Stool Occult Blood [Pending] 05/26/18 14:45: C-Reactive Protein, Quantitative 12.2H Height (Feet): 5 Height (Inches): 9.00 Weight (Pounds): 157 General Appearance: no apparent distress EENT: PERRL/EOMI Neck: normal alignment Cardiovascular: normal peripheral pulses Respiratory/Chest: no respiratory distress Abdomen: normal bowel sounds, no organomegaly Jose Hartman MD May 26, 2018 16:18
--- NOTE | 2018-05-26 18:13 | Discharge Summary ---
Discharge Summary Hospital Course Date of Admission May 24, 2018 at 02:03 Date of Discharge 05/26/2018 Admitting Diagnosis weakness, acute leukemia Reason for Hospitalization: DECLAN, liver failure, r/o acute leukemia HPI James Cadena is a 67 year old male who was admitted on May 24, 2018 at 02:03 for Weakness/Leukemia He was found to have profound leukocytosis and elevated liver enzymes He was also noted to have DECLAN Consultations Gastroenterology Hematology Nephrology Procedures None Hospital Course He progressively worsened necessitating transfer to [facility] for more intensive monitoring and Hepatology consultation given concern for progressive hepatic failure with concomitant renal failure. Discharge Condition Upon Discharge: critical Discharge Disposition Patient was transferred to [facility] for more intense monitoring and Hepatology Consult for worsening liver failure with possible hepatorenal syndrome in the setting of CLL Discussed with Hepatology team- they will consult with patient on arrival to floor Discharge Diagnoses: (1) Acute renal failure (2) Acute liver failure (3) Leukemia (4) Generalized weakness (5) Hyperkalemia Jaguar Guajardo M.D. May 26, 2018 18:13
--- NOTE | 2018-05-27 08:31 | Diagnostic Imaging Report ---
Indication: Abdominal distention Technique: Spiral acquisitions obtained through the abdomen. No oral contrast utilized, per emergency room physician request No IV contrast utilized, per referring physician request.. Multiplanar reconstructions were generated. Total dose length product 475.7 mGycm. CTDIvol(s) 12.54 mGy. Dose reduction achieved using automated exposure control Comparison: Reference made to ultrasound dated 05/24/2018 Findings: Lack of IV contrast limits assessment of the solid organs. Liver is diffusely enlarged. It demonstrates geographic patchy low-attenuation consistent with geographic fatty infiltration. The gallbladder contains high attenuation material, possibly excreted contrast from a prior contrast study. No biliary ductal dilatation. The pancreas is unremarkable. Masslike opacities in the left periaortic region most likely represent varices. The spleen is enlarged, measuring 17 cm long axis dimension. The adrenals are unremarkable. The right kidney demonstrates a 15 mm cyst in the upper pole. Defined area of soft tissue is seen in the left upper pole renal sinus, measures approximately 3 cm in diameter. This demonstrates the same attenuation as the adjacent renal parenchyma. No definite retroperitoneal adenopathy, although the presence of varices makes this difficult to exclude. There is a small amount of ascites fluid. There is diffuse congestion of the mesenteric fat. Visualized bowel loops are grossly unremarkable. No free intraperitoneal gas demonstrated. There is a moderate size right pleural effusion. There is compressive atelectasis of a significant portion of the right lower lobe. There are minimal atelectatic changes at the left lung base Impression: Limited exam, due to lack of oral enteric contrast administration Hepatomegaly Evidence of diffuse geographic fatty infiltration of the liver. Evidence of portal hypertension, with splenomegaly, varices, and a small amount of ascites Findings suspicious for 3 cm soft tissue mass in the left upper pole renal sinus, corresponding to finding reported on recent ultrasound. This is not well demonstrated, however, and appearance is nonspecific. Possibility of neoplasm should certainly be considered. Dense gallbladder luminal contents probably represent excretion of a previous contrast load Moderate size right-sided pleural effusion. Resultant compressive atelectasis of portions of the right lower lobe This agrees with the preliminary interpretation provided overnight by [facility] teleradiology service. The CT scanner at [facility] is accredited by the [employer] and the scans are performed using protocols designed to limit radiation exposure to as low as reasonably achievable to attain images of sufficient resolution adequate for diagnostic evaluation.
--- NOTE | 2018-05-27 09:00 | Consultation ---
DATE OF CONSULTATION: 05/26/2018 GASTROENTEROLOGY CONSULTATION CHIEF COMPLAINT: I was asked to see this patient this morning for evaluation of hepatitis. HISTORY OF PRESENT ILLNESS: The patient is a 67-year-old white man who came to the emergency room on 05/24/2018 with a chief complaint of generalized weakness and some abdominal pain. The patient is somewhat confused now and is difficult to get any more history, therefore, most of my information is available only from the chart records. The patient apparently has had a prior history of chronic leukemia of unclear duration. He came to the emergency room with white count well over 100,000. He has been seen by Hematology and no particular treatment deemed to be necessary at this time. He also was noted to have elevated transaminases and bilirubin, which have progressed over the last 48 hours. The patient also apparently become more confused and has been placed on lactulose. His initial ammonia level today was 110. He also was noted to have hepatitis on admission with an AST of 1166, ALT of 898 and alkaline phosphatase of 899 and bilirubin total of 12.7. These numbers have all worsened over the past 48 hours. The patient also had abdominal ultrasound showing some radiographic features of cirrhotic liver. The liver appeared to be enlarged with coarse echotexture and mildly nodular contour with reversal of blood flow suggestive of chronic liver disease and cirrhosis. The etiology of the cirrhosis is not clear. The patient does seem to have some alcohol consumption, but he is confused at this time and I cannot tell if he drinks excessively or just intermittently. He denies any past history of liver disease. He does take Tylenol No. 3 With Codeine for pain, but it is not clear whether he has taken a significant amount of it and it is not clear whether he takes any [id number] medications including ones that may contain acetaminophen. An acetaminophen level was ordered through initial admission laboratory panel and the level was undetectable. The patient denies having any prescription medications at home, although again the history is very limited since he is confused at this time. PAST MEDICAL HISTORY: History of chronic lymphocytic leukemia. FAMILY HISTORY: Unavailable. SOCIAL HISTORY: The patient states he is single and has no family that I can call. He states he has a "hostile" brother and he does not want me to call him. When asked about alcohol, he states he takes some alcohol "as a medication" intermittently, but I cannot understand what he means by that. REVIEW OF SYSTEMS: Otherwise unobtainable. PHYSICAL EXAMINATION: GENERAL: Confused white man who keeps his eyes closed for most of the interview, seen in his room with the nurse at bedside. HEENT: Normocephalic and atraumatic. The patient has jaundice. NECK: Supple. CHEST: Clear to auscultation. CARDIOVASCULAR: Reveals regular rate. ABDOMEN: Mildly distended and reveals an enlarged liver, which is firm on palpation. There is some mild diffuse tenderness, but no focal tenderness. EXTREMITIES: Trace edema. NEURO: Confused, moves all four. LABORATORY DATA: Noted. ASSESSMENT: This patient has developed rapidly rising liver enzymes in the last 48 hours in the background setting of chronic liver disease and cirrhosis. The etiology of the chronic liver disease is unclear, but alcohol would be one consideration and chronic viral hepatitis would be another typical consideration. The serologies will be sent off for further evaluation. In addition, there is an acute component, which has a high mortality on this setting given the underlying cirrhosis. The etiologies include drugs and toxins and acute viral infections. The serologies and tests for these activities will also be ordered today. The patient's prognosis is extremely poor since he has multiple risk factors for mortality including an underlying cirrhotic disease, severe progressive hepatitis, acute renal failure, which is complicating the picture, and rapidly progressive encephalopathy. The patient should be transferred to a center for liver transplant in order to assist with the management of acute liver failure. Unfortunately, his leukemia will be a contraindication to liver transplant, and therefore, he would not qualify for this life-saving procedure should his liver fail. The patient should also be seen by a mud grinder since he would likely need emergent dialysis to control his fluid status and electrolytes. He should be followed very closely and his laboratory parameters should be checked frequently. I will increase his lactulose dose and he is likely to need clearance of ammonia from his system. RECOMMENDATIONS: Per above discussion and per orders written in the chart. Thank you for asking me to participate in care of this patient. Des Jha M.D. DR: ELENA JOB#: [id number] CC: [email or web address]
== END 2018-05-26 18:07 | disposition short-term general hospital (02) | DRG 840 ==
LOC: EDBD 23:49 → EMR 23:59 → 2E 05-24 02:03 → EDBEDREQ 05-24 02:35
DX: C91.10 Chronic lymphocytic leukemia of B-cell type not having achieved remission (principal); K72.00 Acute and subacute hepatic failure without coma; N17.9 Acute kidney failure, unspecified; F10.239 Alcohol dependence with withdrawal, unspecified; D68.4 Acquired coagulation factor deficiency; R53.1 Weakness; E87.5 Hyperkalemia; E78.5 Hyperlipidemia, unspecified; N18.9 Chronic kidney disease, unspecified; D63.1 Anemia in chronic kidney disease; I12.9 Hypertensive chronic kidney disease with stage 1 through stage 4 chronic kidney disease, or unspecified chronic kidney disease; K75.9 Inflammatory liver disease, unspecified; E87.8 Other disorders of electrolyte and fluid balance, not elsewhere classified
CPT/HCPCS: 36415; 70450; 74150; 76700; 80053; 80329; 81003; 82103; 82105; 82140; 82248; 82270; 82550; 82607; 82728; 82784; 83540; 83550; 83690; 84550; 85007; 85025; 85044; 85610; 85651; 85730; 86039; 86140; 86235; 86308; 86665; 86695; 86705; 86709; 86803; 86850; 86900; 86901; 87340; 87496; 87517; 87798; 93005; J2405